=== PATIENT | female | born 1955 | race Caucasian/White ===

== ENCOUNTER 2016-04-08 06:10 | Inpatient (IN) ==
--- NOTE | 2016-04-08 06:42 | History & Physical Report ---
Date of Encounter: 04/08/16 Time of Encounter: 06:41 24 Hour HP Update - Instructions Instructions: If the History and Physical is less than 30 days old and was completed prior to A.M. admission and or procedure and has NOT been updated on calendar day of procedure please complete this update prior to performing procedure. - Update Patient reports changes in Medical Condition: No Changes in assessment/condition: No Changes in Medication: No Preop tests/diagnostics Reviewed: Yes Surgery Remains Indicated: Yes Consent for Planned Operative Procedure(s) Verified: Yes - Pre-Operative Checklist Preoperative Checklist Indicated: No Prophylactic Antibiotic Ordered: Yes Is VTE Prophylaxis Indicated?: Yes
[2016-04-08] MEDS ORDERED: Albuterol 2.5 MG/3 ML NEBULIZER IH ONE (06:57)
[2016-04-08] MEDS ORDERED: Albuterol 2.5 MG/3 ML NEBULIZER ONE (06:59)
--- NOTE | 2016-04-08 06:59 | Anesthesia Evaluation PreOp ---
Date of Encounter: 04/08/16 Time of Encounter: 07:00 - Past History Planned Operation: Left Total Shoulder Reverse Ball Cardiac History: HTN Pulmonary History: Smoker ZOO VETERINARIAN History: Denies Any Significant HX Other Medical History: Thyroid Anesthesia History: No Prior Anesthetic Complications : No Alcohol Use: none Drug use: none Medications and Allergies Allergies codeine Allergy (Unverified 03/25/16 08:11) Hallucinating Penicillins Allergy (Unverified 03/25/16 08:11) Rash Sulfa (Sulfonamide Antibiotics) Allergy (Unverified 03/25/16 08:11) Blister - Meds/Allergy Pre-op Review Medications Reviewed: Yes Allergies Reviewed: Yes Beta Blockers on Current Med List: No Anesthesia Results - Labs Laboratory Tests 03/25/16 03/25/16 08:22 08:22 Hgb 13.8 Hct 43.0 Plt Count 216 Sodium 140 Potassium 4.4 BUN 15 Creatinine 0.79 - Imaging EKG: report reviewed (NSR) Anesthesia Exam O2 Sat Height 1.73 m Height 1.73 m Weight 87.543 kg Weight 87.543 kg O2 Sat by Pulse Oximetry 95 Vital Signs Temp Pulse Resp BP Pulse Ox 98.6 F 82 18 152/104 95 04/08/16 06:49 04/08/16 06:49 04/08/16 06:49 04/08/16 06:49 04/08/16 06:49 Height: 5'8 Weight: 193 lbs NPO (# of Hours): MN - HEENT Pupil (Motor): Pupils equal, EOMI Mallampati: III Teeth: Edentulous Oral Opening: Less than or equal to 3 - ZOO VETERINARIAN LOC: Oriented ZOO VETERINARIAN Motor: Normal RUE, Normal LUE, Normal RLE, Normal LLE, Normal Face ZOO VETERINARIAN Sensory: Normal: RUE, LUE, RLE, LLE, Face - Cardiac Rhythm: Regular Murmur: None JVD: No Carotid Bruit: No - Pulmonary Breath Sounds: bilateral Clear Respiratory Effort: Symmetrical Anesthesia Assess/Plan ASA Score: 2 (HTN Tobacco) Modified [place] Scale for Level of Consciousness: Cooperative, oriented, and tranquil Anesthetic Plan: General, Regional Monitoring Plan: Standard Monitors Recovery Plan: PACU (Discussed GA and RA, agrees to proceed)
[2016-04-08] MEDS ORDERED: Ringers Solution, Lactated 1,000 ML IVC SCH ×2 (07:00→10:13)
[2016-04-08] MEDS ORDERED: *HR* Midazolam HCl 2 MG/2 ML VIAL ONE (07:03)
[2016-04-08] MEDS ORDERED: *HR* Propofol 200 MG/20 ML VIAL IVP ONE (07:03)
[2016-04-08] MEDS ORDERED: *HR* FentaNYL (PF) 100 MCG/2 ML VIAL ONE ×2 (07:03→08:08)
[2016-04-08] MEDS ORDERED: Lidocaine -MPF 2% 2 ML VIAL ONE (07:04)
[2016-04-08] MEDS ORDERED: *HR* Succinylcholine 200 MG/10 ML VIAL IVP ONE (07:04)
[2016-04-08] MEDS ORDERED: *HR* Phenylephrine 10 MG/ML VIAL ONE (07:05)
[2016-04-08] MEDS ORDERED: Lidocaine -MPF 4% 5 ML AMPUL ONE (07:06)
[2016-04-08] MEDS ORDERED: Clindamycin 900 MG/50 ML 900 MG/50 ML IV.SOLN IVPB ONE (07:09)
[2016-04-08] MEDS ORDERED: Lidocaine 1% 20 ML MDV ID ONE (07:09)
[2016-04-08] MEDS ORDERED: Bupivacaine/Clonidine Syringe 1 EACH SYRINGE ONE (07:09)
[2016-04-08] MEDS ORDERED: *HR* Labetalol 100 MG/20 ML MDV IVP PRN (07:37)
[2016-04-08] MEDS ORDERED: *HR* HYDROmorphone (PF) 1 MG/ML SYRINGE IVP PRN ×2 (07:37→10:13)
[2016-04-08] MEDS ORDERED: Ondansetron 4 MG/2 ML VIAL IVP ONE (07:37)
--- NOTE | 2016-04-08 07:37 | Anesthesia Procedures ---
Date of Encounter: 04/08/16 Time of Encounter: 07:35 Procedures: Anesthesia - Nerve Block Procedure Date: 04/08/16 Time: 07:35 Allergies/Adv Reactions: codeine Allergy (Verified 04/08/16 07:16) Hallucinating Penicillins Allergy (Verified 04/08/16 07:16) Difficulty Breathing Sulfa (Sulfonamide Antibiotics) Allergy (Verified 04/08/16 07:16) Blister Pre-op Diagnosis: left rotator cuff arthropathy Surgical Procedure: left shoulddr reverse ball Checklist: Correct Patient Identifier, Correct procedure, History checked Correct side: Left Blood Thinner: No Monitor Applied: EKG, BP, Pulse Oximetry Sedation: Versed (mg): 2 Sedation: Fentanyl (mcg): 100 Indication: Post Op Analgesia Block Type: Supraclavicular Catheter placed: No Sterile Technique: Yes Ultrasound used: Yes Anatomy identified: Yes Visual spread of Local: Yes Neuro Stimulation: No Smooth Injection of Local: Yes Pain with Injection of Local: No Prep: Chlorhexadine Needle: 22 x 50 mm Stimuplex Local: Other (0.375% bupivicaine) Volume (cc): 30 Number of Attempts: 1 Complications: None/effective block Vitals: see nurses notes
--- NOTE | 2016-04-08 07:52 | Discharge Summary ---
<Dorothea Bernal - Last Filed: 04/08/16 07:50> Date of Encounter: 04/09/16 - Discharge Diagnosis (1) Left rotator cuff tear arthropathy Priority: Primary Status: Acute - Discharge Medications Home Medications: Aspirin 81 mg PO DAILY 04/08/16 [History] Atorvastatin Calcium [Lipitor] 20 mg PO HS 04/08/16 [History] Cholecalciferol (Vitamin D3) [Vitamin D3] 50,000 unit PO WE 04/08/16 [History] Esomeprazole Magnesium [Nexium] 40 mg PO DAILY 04/08/16 [History] Fesoterodine Fumarate [Toviaz] 8 mg PO DAILY 04/08/16 [History] Gabapentin [Neurontin] 300 mg PO HS 04/08/16 [History] Levothyroxine [Synthroid] 88 mcg PO 0630 04/08/16 [History] Losartan [Cozaar] 25 mg PO DAILY 04/08/16 [History] OxyCODONE Immed Rel [Roxicodone 5 MG] 5 - 10 mg PO Q6HR PRN #40 tablet 04/08/16 [Rx] Sertraline [Zoloft] 100 mg PO DAILY 04/08/16 [History] Trazodone HCl 100 mg PO HS 04/08/16 [History] Allergies/Adverse Reactions: Allergies codeine Allergy (Verified 04/08/16 07:16) Hallucinating Penicillins Allergy (Verified 04/08/16 07:16) Difficulty Breathing Sulfa (Sulfonamide Antibiotics) Allergy (Verified 04/08/16 07:16) Blister Primary care physician: Cal Zavala MD - Patient Status Disposition: Home, Self-Care Condition: Good - Discharge Instructions Follow Up With: Russ Colby MD [Partnered Physician] - 12/16/16 7:30 am Cal Zavala MD [Primary Care Provider] - 04/15/16 8:00 am Additional Instructions: Discharge Instructions: Total Shoulder Please call [facility] ([phone]), your Primary Care Physician, or report to the Emergency Room if you have any of the following symptoms: Nausea, vomiting, fever greater that 101.5, swelling, chest pain, shortness of breath, increased pain/redness/drainage/odor for your incision site, numbness/ tingling, or any other concerning symptoms. ACTIVITY: Always keep your arm in the sling. Do not raise your arm away from your body. Do not use your arm to help with getting in or out of bed. No weight bearing permitted. Only perform those exercises given to you by your therapist. MEDICATIONS: Upon discharge resume your home medications. Take all the medications as prescribed. Take a stool softener if taking narcotic pain medications. Stool softeners are only effective if you drink enough fluids. Drink 6-8 glass of water or fluids a day, unless this is not allowed for another health problem. Despite using stool softeners, if you haven't had a bowel movement in 3 days, please switch to a gentle laxative. Gentle laxatives are sold over the counter. You should have a bowel movement within 24 hours, if not call the office. You will be discharged from the hospital with a prescription for pain medication. You are encouraged to decrease the use of narcotic pain medication as tolerated. Should you require a refill, please call the office. [facility] prescribes narcotic pain medication for only 4-6 weeks after surgery. If you require pain medication beyond this time period, you may be referred to your Primary Care Physician or to the Pain Clinic for further evaluation. Plan ahead for refills on pain medication as many narcotics either need to be picked up at the office or mailed. It is best to call 48-72 hours in advance of needing a prescription refill so you don't run out of medication. To help control the post-operative pain, you may take NSAIDs (Aleve,Advil, Motrin, ibuprofen, naprosyn) or Tylenol as prescribed on the bottle in addition to the pain medication. ANTICOAGULATION (blood thinners): Continue your Aspirin, Lovenox or Coumadin as prescribed to help prevent a blood clot in the leg or in the lungs. As long as your incision remains dry and you tolerate the NSAIDs (Aleve, Advil, Motrin, ibuprofen, naprosyn), it is OK to use the NSAIDS while you are taking your anticoagulation medication. Should your incision start to drain, stop the NSAID and contact our office. Common symptoms of blood clot in the legs include: localized pain, swelling, calf tenderness, redness or discoloration of the skin. Blood clot in the lung symptoms include: shortness of breath, rapid pulse, sweating, and chest pain that worsens with deep breathing, coughing up blood, lightheadedness, and feelings of anxiety. If you experience any of these symptoms notify your physician immediately, go to the emergency room, or if having trouble breathing , call 911. WOUND CARE: Leave the dressing on for 7 days. You may change the dressing if it becomes saturated greater than 50%. You can shower but not a tub bath or submerge your incision in water. Wash your hands with antibacterial soap, rinse and dry prior to any wound care. If you have claudia the visiting nurse or rehab facility can remove the stapes 10-14 days after surgery and place steri -strips across the wound. Leave the steri-strips in place until they fall off on their won. You may let water from the shower run on top of the steri- stirips. If you do not have a visiting nurse or rehab facility, you will need to return to the office at 10-14 days for the claudia to be removed. FOLLOW-UP: Please follow up with your surgeon in the orthopedic clinic, as scheduled - Hospital Course Hospital course: Ms. Palencia is a 61 year old female - Time Spent with Patient Total time spent providing and/or coordinating discharge services: <Brain Polanco - Last Filed: 04/08/16 16:36> Date of Encounter: 04/08/16 Time of Encounter: 16:36 - Discharge Diagnosis (1) Left rotator cuff tear arthropathy Priority: Primary Status: Acute (2) Hypertension Priority: Secondary Status: Chronic Qualifiers: Hypertension type: unspecified secondary hypertension Qualified Code(s): I15.9 - Secondary hypertension, unspecified; I15 - Secondary hypertension (3) Tobacco abuse Priority: Secondary Status: Chronic (4) Thyroid disease Priority: Secondary Status: Chronic Primary care physician: Cal Zavala MD - Patient Status Functional capacity at discharge: independent ambulation Overall status at discharge: patient is progressing back to baseline - Hospital Course Hospital course: Ms. Palencia is a 61 year old female The patient had an uneventful postoperative course. They received antibiotics and physical therapy and were discharged in stable condition. There will follow -up in the office in 2 weeks. - Time Spent with Patient Total time spent providing and/or coordinating discharge services:
[2016-04-08] MEDS ORDERED: Dexamethasone 4 MG/ML VIAL ONE (08:05)
[2016-04-08] MEDS ORDERED: EPHEDrine 50 MG/ML VIAL ONE (08:20)
--- NOTE | 2016-04-08 08:36 | Orthopedic Operative Note ---
Date of procedure: 04/08/16 Pre-op diagnosis: Left shoulder cuff tear arthropathy Post-op diagnosis: same Procedure: Procedure: Left Total Shoulder Replacment Reverse Estimated blood loss: 100 cc Hardware:Arthrex large glenoid baseplate, 2 4.5 screws. 1 6.5 screw, 42 glenosphere, 10 humeral stem, poly insert 3 Exam Under anesthesia: Full motion no instability Procedural Notes: Grade 4 arthritic changes humeral head glenoid socket irreparable rotator cuff tear subscap irrepairable Operative procedure: The patient was brought to the operating room and placed on the operating room table. After general anesthesia was administered the operative shoulder was examined. Findings were noted. The patient was placed in the modified beachchair position. All pressure points were padded appropriately. And the head was stabilized in the neutral position. The operative extremity was prepped and draped in the sterile surgical fashion. The patient received IV antibiotics prior to skin incision. A standard deltopectoral approach was made to the operative shoulder. Incision was made to the skin and subcutaneous tissue,hemo stasis was obtained with Bovie cautery. Using careful blunt dissection the cephalic vein was identified and mobilized medially. The deltopectoral interval was developed and the clavipectoral fascia was incised. The subscap was released off the lesser tuberosity and tagged with #2 FiberWire suture it was irreparable. The humerus was dislocated patient noted to have irreparable tear supraspinatus tendon as well as grade 43 changes., and the humeral cut was made along the anatomic neck. Anterior and posterior Bankart retractors were placed to expose the glenoid, glenoid had grade 4 arthritic changes.. The large glenoid guide was seated and the centering hole was made. It was reamed with the large appropriate reamer. The large baseplate was seated and secured with (2) 4.5 screws and one 6.5 screw. The baseplate was irrigated and dried and the 42 Glenosphere was seated and secured with the Powell taper. The Powell taper was tested and found to be secure the humerus was redislocated and prepared with the diaphyseal reamers, followed by a broaching process up to the appropriate size 10 in the patient's anatomic version. The metaphyseal reamer was then utilized. Trial reduction found the shoulder to be relocatable. Trial components were removed. The appropriate 10 stem was impacted in place in the patient's anatomic version. Trial reduction found the shoulder to be relocatable and stable with the appropriate 3. Trial component was removed and the real 3 was seated and secured the shoulder was reduced. The shoulder had excellent motion and excellent stability and no evidence of dislocation. The deep tissue was irrigated with pulse irrigation. The subscap was repaired incorporating the biceps tendon for biceps tenodesis and a subscap repair. The deltopectoral interval was closed with a running #1 PDS suture, subcutaneous tissue was irrigated and closed with 0 PDS suture, the skin was closed with Dermabond. The patient was placed in a sterile dressing, abduction brace and extubated. The patient was then transferred to the recovery room in stable condition. Anesthesia: LONNIE Surgeon: Brain Polanco Emergency Medical Dispatcher: Dorothea Bernal Condition: stable Disposition: PACU
[2016-04-08 09:15] LABS: Hematocrit 39.3 % (35.3-44.9); Hemoglobin 12.3 g/dL (11.5-15.4)
[2016-04-08] MEDS ORDERED: Aspirin 81 MG TAB.CHEW PO SCH (10:13)
[2016-04-08] MEDS ORDERED: Sennosides 8.6 MG TABLET PO PRN (10:13)
[2016-04-08] MEDS ORDERED: Albuterol Neb 1.25 MG/3 ML VIAL IH ONE (10:13)
[2016-04-08] MEDS ORDERED: *HR* OxyCODONE Immed Rel 5 MG TABLET PO PRN ×2 (10:13)
[2016-04-08] MEDS ORDERED: MOM Conc 10 ML UD.LIQ PO PRN (10:13)
[2016-04-08] MEDS ORDERED: Naloxone 0.4 MG/ML INJ IVP PRN (10:13)
[2016-04-08] MEDS ORDERED: Ondansetron 4 MG/2 ML VIAL IVP PRN (10:13)
[2016-04-08] MEDS ORDERED: Acetaminophen 325 MG TABLET PO PRN (10:13)
[2016-04-08] MEDS ORDERED: Clindamycin 900 MG/50 ML 900 MG/50 ML IV.SOLN IVPB SCH ×2 (10:13→16:00)
[2016-04-08] MEDS ORDERED: Temazepam 15 MG CAPSULE PO PRN (10:13)
--- NOTE | 2016-04-08 10:22 | Anesthesia Evaluation Post Op ---
Date of Encounter: 04/08/16 Time of Encounter: 10:20 - Vital Signs Vital Signs: Vital Signs/O2 Sat/Glucose, Most Current Temp Pulse Resp BP Pulse Ox 04/08/16 10:00 97.8 F 89 13 121/89 93 L 04/08/16 09:40 81 16 133/93 95 04/08/16 09:30 85 16 127/91 96 04/08/16 09:20 98.2 F 90 16 133/94 95 04/08/16 09:10 85 16 135/95 96 04/08/16 09:00 88 16 142/106 96 04/08/16 08:50 97.4 F L 91 18 141/100 97 04/08/16 07:42 89 16 146/119 95 04/08/16 07:33 90 18 158/139 96 04/08/16 07:22 80 16 154/102 98 04/08/16 07:12 98.6 F 82 18 152/104 95 04/08/16 06:49 98.6 F 82 18 152/104 95 - Lungs Lungs: Clear Ascult./Percussion - Airway Airway: Non-obstructed - Cardiovascular Regular Rate - Mental Status Mental Status: Alert & Oriented, Answers Appropriately - Pain Pain Scale: 0 - Nausea Vomiting Nausea Vomiting: Not Present - Hydration Hydration: Tolerates oral liquids - Discharge PostOp Status: Transfer Patient to floor
[2016-04-08] MEDS ORDERED: Cholecalciferol (D-3) 1,000 UNIT TABLET PO SCH (11:30)
[2016-04-08 13:16] VITALS: BP 115/80
[2016-04-08] MEDS ORDERED: *HR* Enoxaparin 30 MG/0.3 ML SYRINGE SQ SCH ×2 (15:45→18:00)
[2016-04-08] MEDS ORDERED: traZODone 50 MG TABLET PO SCH (21:00)
[2016-04-08] MEDS ORDERED: Gabapentin 300 MG CAPSULE PO SCH (21:00)
== END 2016-04-08 17:11 | disposition home or self-care (01) | DRG 483 ==
LOC: SAMDAY 06:10 → 3NENU 10:13
PROVIDERS: ADMIT Orthopaedic Surgery; ATTEND Orthopaedic Surgery